=== PATIENT | female | born 1955 | race Caucasian/White ===

== ENCOUNTER 2021-01-23 07:04 | Day surgery (SDC) | payer MEDICARE, SELFPAY ==
[2021-01-17 15:27] VITALS: BMI 35.5
--- NOTE | 2021-01-20 15:07 | MHC.SHP ---
Pre-Procedural Eval Section A The patient is an INPATIENT: No The History & Physical has been completed within 30 days and I have reviewed it.: Yes Section B Chief Complaint: cataract left eye Allergies: Allergies Allergy/AdvReac Type Severity Reaction Status Date / Time No Known Allergies Allergy Verified 01/17/21 15:33 [No Known Allergies*] Plan Diagnosis/Plan: Unchanged I have reviewed the history and physical and performed a pertinent physical examination on my patient. No changes have occurred unless specified.
[2021-01-23 07:16] VITALS: BP 139/88; PULSE 90; RESP 18; TEMP 36.1; O2SAT 94
[2021-01-23] MEDS: Tetracaine HCl/PF 0.5% Oph Sol 4 ML DROPS 1 DROP EYE-LEFT (07:25)
[2021-01-23] MEDS: Tropicamide 1 % Ophth Sol 3 ML BTL 1 DROP EYE-LEFT ×3 (07:26→07:33)
[2021-01-23] MEDS: Phenylephrine HCL 2.5% Oph SoL 2 ML BOTTLE 1 DROP EYE-LEFT ×3 (07:27→07:33)
--- NOTE | 2021-01-23 08:19 | HO.ANESPROP2 ---
[facility] Past Medical History Medical History Back pain Depression Elevated cholesterol GERD (gastroesophageal reflux disease) Hiatal hernia History of cerebral aneurysm HTN (hypertension) Hx of spinal stenosis Lab test negative for COVID-19 virus Surgical History Surgical History H/O colonoscopy History of esophagogastroduodenoscopy (EGD) Hx of hammer toe correction Social History Social History Are you a primary patient centered care specialist to a significant other at home: No Do you presently have visiting nurse or other home services: No Alcohol intake: current Alcohol intake frequency: a few times a month Smoking Status: Never smoker Use of substances other than those prescribed or required for medical reasons: No Have you been hit, kicked, punched, or otherwise hurt by someone within the past year? If so, by whom?: No Advance Directives Information Provided: No Recently lost weight without trying: No Meds Allergies Allergy/AdvReac Type Severity Reaction Status Date / Time No Known Allergies Allergy Verified 01/17/21 15:33 [No Known Allergies*] Active Medications: Current Medications Generic Name Dose Route Start Last Admin Trade Name Freq PRN Reason Stop Dose Admin Povidone Iodine 1 appl 01/23/21 07:05 Povidone Iodine 5 % Ophth Soln 30 Ml Bottle EYE-LEFT PREOP PRN Pre-Op Surgical Implant Prophy Home Medications Medication Instructions Recorded Confirmed Last Taken Type albuterol sulfate 2 puff PO Q4H PRN 01/17/21 01/17/21 Unknown History atorvastatin 1 tab PO DAILY 01/17/21 01/17/21 Unknown History bupropion HCl 150 mg PO DAILY 01/17/21 01/17/21 Unknown History celecoxib 1 cap PO DAILY 01/17/21 01/17/21 Unknown History hydrochlorothiazide 1 tab PO DAILY 01/17/21 01/17/21 Unknown History lorazepam 1 tab PO BID PRN 01/17/21 01/17/21 Unknown History omeprazole 1 cap PO DAILY 01/17/21 01/17/21 Unknown History sertraline 1 tab PO DAILY 01/17/21 01/17/21 Unknown History tramadol 1 tab PO Q8H PRN 01/17/21 01/17/21 Unknown History valsartan 1 tab PO DAILY 01/17/21 01/17/21 Unknown History Exam Exam Date and Time: January 23, 2021 0819 Height,Weight and Vital Signs: Height 5 ft 4 in Weight 93.894 kg Last Vital Signs Temp 97.0 F 01/23/21 07:16 Pulse 90 01/23/21 07:16 Resp 18 01/23/21 07:16 BP 139/88 01/23/21 07:16 Pulse Ox 94 01/23/21 07:16 Airway Mallampati Class: II TM Dist: >3cm Neck ROM: Full Heart: RRR Lungs: CTA Assessment and Plan Assessment Anesthesia Assessment: Anesthesia Plan Discussed and Chart Reviewed Final Anesthetic Review NPO: Yes ASA Class: II Final Preanesthetic Review: Meds/Allgs Chart Reviewed, Consent Obtained/Reviewed and Anes Risks/Benef Reviewed Patient Risk: Low Procedure Risk: Low Anesthetic Plan Anesthetic Plan: MAC: Disposition: Standard PACU
[2021-01-23] MEDS: Lactated Ringers 500 ML 50 ML IV (09:00)
[2021-01-23 10:25] VITALS: BP 155/87; PULSE 82; RESP 20; TEMP 36.3; O2SAT 98
--- NOTE | 2021-01-23 10:25 | HO.PNOPHT ---
Ophthalmology Procedure Procedure Date of Service: 01/23/21 Ophthalmology Viscoelastic: Healon Duet Dual Pack Pro Ophthalmology Lenses: TECNIS [id number] (20.5) Procedure Notes: PREOPERATIVE DIAGNOSIS: Decreased visual acuity left eye secondary to cataract POSTOPERATIVE DIAGNOSIS: Same PROCEDURE: Left cataract extraction with multifocal intraocular lens insertion SURGEON: Baljeet Copeland M.D. ANESTHESIA: Topical/MAC ESTIMATED BLOOD LOSS: None COMPLICATIONS: Capsular rent After obtaining informed consent, the patient was brought to the operation room suite and placed in the supine position. After adequate sedation per anesthesia, topical drops of Tetracaine were given to the left eye. The eye was then prepped and draped in the usual sterile fashion. The operating room microscope was then positioned over the operative eye and a lid speculum placed. A paracentesis was created. Viscoelastic was then instilled into the anterior chamber. A three plane incision was then created temporally, utilizing a 2.85 mm keratome. Capsulotomy forceps were then utilized to create a circular tear capsulotomy. Hydrodissection and hydrodelineation were carried out until adequate mobilization of the nucleus occurred. Phacoemulsification was then utilized to remove the dense central nucleus followed by removal of the cortical material utilizing the automated aspiration irrigation unit. A rent in the capsule was noted and I switched to an anterrior vitrectomy. The rent was small. Viscoelastic was instilled into the posterior capsular bag followed by placement of a multifocal posterior chamber intraocular lens without difficulty being careful to position the haptics away from the rent.. The residual Viscoelastic was then removed utilizing the vitrector machine. The wound was check and found to be watertight. The patient tolerated the procedure well and the lid speculum was removed. Intracameral injection of Vigamox 0.1 mL followed by a subtenon injection of Kenalog-40 0.2 mL were administered. The patient will be seen in the a.m.
== END 2021-01-23 10:36 | disposition home or self-care (01) ==
PROVIDERS: PCP Internal Medicine; Visit Provider Ophthalmology
PROC: (CPT 66982; principal; 2021-01-23 09:50)
DX: H25.12 Age-related nuclear cataract, left eye (principal); H59.212 Accidental puncture and laceration of left eye and adnexa during an ophthalmic procedure; H52.4 Presbyopia; Y83.1 Surgical operation with implant of artificial internal device as the cause of abnormal reaction of the patient, or of later complication, without mention of misadventure at the time of the procedure; Y92.234 Operating room of hospital as the place of occurrence of the external cause; Y77.2 Prosthetic and other implants, materials and accessory ophthalmic devices associated with adverse incidents; I10 Essential (primary) hypertension; J45.909 Unspecified asthma, uncomplicated; Z79.899 Other long term (current) drug therapy
CPT/HCPCS: 66982; 67005; J2250; J3010; J3300; V2788

== ENCOUNTER 2021-02-06 06:41 | Day surgery (SDC) | payer MEDICARE, SELFPAY ==
[2021-01-17 15:36] VITALS: BMI 35.5
--- NOTE | 2021-02-03 08:55 | MHC.SHP ---
Pre-Procedural Eval Section A The patient is an INPATIENT: No The History & Physical has been completed within 30 days and I have reviewed it.: Yes Section B Chief Complaint: cataract right eye Allergies: Allergies Allergy/AdvReac Type Severity Reaction Status Date / Time No Known Allergies Allergy Verified 01/17/21 15:33 [No Known Allergies*] Plan Diagnosis/Plan: Unchanged I have reviewed the history and physical and performed a pertinent physical examination on my patient. No changes have occurred unless specified.
[2021-02-06 06:54] VITALS: BP 135/87; PULSE 91; RESP 20; TEMP 36.7; O2SAT 93
[2021-02-06] MEDS: Tetracaine HCl/PF 0.5% Oph Sol 4 ML DROPS 1 DROP EYE-RIGHT (07:07)
[2021-02-06] MEDS: Tropicamide 1 % Ophth Sol 3 ML BTL 1 DROP EYE-RIGHT ×3 (07:08→07:17)
[2021-02-06] MEDS: Phenylephrine HCL 2.5% Oph SoL 2 ML BOTTLE 1 DROP EYE-RIGHT ×3 (07:11→07:19)
--- NOTE | 2021-02-06 07:17 | HO.ANESPROP2 ---
[facility] Past Medical History Medical History Back pain Depression Elevated cholesterol GERD (gastroesophageal reflux disease) Hiatal hernia History of cerebral aneurysm HTN (hypertension) Hx of spinal stenosis Lab test negative for COVID-19 virus Surgical History Surgical History H/O colonoscopy History of esophagogastroduodenoscopy (EGD) Hx of hammer toe correction Social History Social History Do you presently have visiting nurse or other home services: No Alcohol intake: current Alcohol intake frequency: a few times a month Smoking Status: Never smoker Use of substances other than those prescribed or required for medical reasons: No Have you been hit, kicked, punched, or otherwise hurt by someone within the past year? If so, by whom?: No Advance Directives Information Provided: No Recently lost weight without trying: No Meds Allergies Allergy/AdvReac Type Severity Reaction Status Date / Time No Known Allergies Allergy Verified 02/06/21 06:51 [No Known Allergies*] Active Medications: Current Medications Generic Name Dose Route Start Last Admin Trade Name Freq PRN Reason Stop Dose Admin Cyclopentolate HCl 1 drop 02/06/21 07:15 Cyclopentolate 1 % Ophth Lucrecia 2 Ml Drpbtl EYE-RIGHT 02/06/21 07:26 Q5M KADEN Sodium Chloride 500 mls @ 50 mls/hr 02/06/21 18:00 Ns IV 02/07/21 03:59 .Q10H KADEN Lactated Ringer's 500 mls @ 50 mls/hr 02/06/21 07:15 Lr IV .Q10H KADEN Ketorolac Tromethamine 1 drop 02/06/21 07:15 02/06/21 07:14 Ketorolac Tromethamine 0.5% Op 3 Ml Drops EYE-RIGHT 02/06/21 07:26 1 drop Q5M KADEN Administration Phenylephrine HCl 1 drop 02/06/21 07:15 02/06/21 07:11 Phenylephrine Hcl 2.5% Oph Lucrecia 2 Ml Bottle EYE-RIGHT 02/06/21 07:26 1 drop Q5M KADEN Administration Povidone Iodine 1 appl 02/06/21 07:02 Povidone Iodine 5 % Ophth Soln 30 Ml Bottle EYE-RIGHT PREOP PRN Pre-Op Surgical Implant Prophy Tropicamide 1 drop 02/06/21 07:15 02/06/21 07:13 Tropicamide 1 % Ophth Lucrecia 3 Ml Btl EYE-RIGHT 02/06/21 07:26 1 drop Q5M KADEN Administration Home Medications Medication Instructions Recorded Confirmed Last Taken Type albuterol sulfate 2 puff PO Q4H PRN 01/17/21 01/17/21 Unknown History atorvastatin 1 tab PO DAILY 01/17/21 01/17/21 Unknown History bupropion HCl 150 mg PO DAILY 01/17/21 01/17/21 Unknown History celecoxib 1 cap PO DAILY 01/17/21 01/17/21 Unknown History hydrochlorothiazide 1 tab PO DAILY 01/17/21 01/17/21 Unknown History lorazepam 1 tab PO BID PRN 01/17/21 01/17/21 Unknown History omeprazole 1 cap PO DAILY 01/17/21 01/17/21 02/06/21 05:00 History sertraline 1 tab PO DAILY 01/17/21 01/17/21 02/06/21 05:00 History tramadol 1 tab PO Q8H PRN 01/17/21 01/17/21 Unknown History valsartan 1 tab PO DAILY 01/17/21 01/17/21 Unknown History Exam Exam Date and Time: February 06, [id number] Height,Weight and Vital Signs: Height 5 ft 4 in Weight 93.894 kg Last Vital Signs Temp 98.0 F 02/06/21 06:54 Pulse 91 02/06/21 06:54 Resp 20 02/06/21 06:54 BP 135/87 02/06/21 06:54 Pulse Ox 93 02/06/21 06:54 Airway Mallampati Class: II TM Dist: >3cm Neck ROM: Full Denture: Upper Loose/Missing/Broken Teeth: No Heart: rrr+[id number] Lungs: cta b/l Assessment and Plan Assessment Anesthesia Assessment: Anesthesia Plan Discussed and Chart Reviewed Final Anesthetic Review NPO: Yes ASA Class: III Final Preanesthetic Review: No Changes in Pt Med Stat, Meds/Allgs Chart Reviewed, Consent Obtained/Reviewed and Anes Risks/Benef Reviewed Patient Risk: Low Procedure Risk: Low Assessment/Block/Sedation in SS: Assess/Block/Sedation-SS Anesthetic Plan Anesthetic Plan: MAC: and Agree w/ Assess. and Plan Disposition: Standard PACU
--- NOTE | 2021-02-06 07:18 | HO.ANESPROP2 ---
[facility] Past Medical History Medical History Back pain Depression Elevated cholesterol GERD (gastroesophageal reflux disease) Hiatal hernia History of cerebral aneurysm HTN (hypertension) Hx of spinal stenosis Lab test negative for COVID-19 virus Surgical History Surgical History H/O colonoscopy History of esophagogastroduodenoscopy (EGD) Hx of hammer toe correction Social History Social History Do you presently have visiting nurse or other home services: No Alcohol intake: current Alcohol intake frequency: a few times a month Smoking Status: Never smoker Use of substances other than those prescribed or required for medical reasons: No Have you been hit, kicked, punched, or otherwise hurt by someone within the past year? If so, by whom?: No Advance Directives Information Provided: No Recently lost weight without trying: No Meds Allergies Allergy/AdvReac Type Severity Reaction Status Date / Time No Known Allergies Allergy Verified 02/06/21 06:51 [No Known Allergies*] Active Medications: Current Medications Generic Name Dose Route Start Last Admin Trade Name Freq PRN Reason Stop Dose Admin Cyclopentolate HCl 1 drop 02/06/21 07:15 Cyclopentolate 1 % Ophth Lucrecia 2 Ml Drpbtl EYE-RIGHT 02/06/21 07:26 Q5M KADEN Sodium Chloride 500 mls @ 50 mls/hr 02/06/21 18:00 Ns IV 02/07/21 03:59 .Q10H KADEN Lactated Ringer's 500 mls @ 50 mls/hr 02/06/21 07:15 Lr IV .Q10H KADEN Ketorolac Tromethamine 1 drop 02/06/21 07:15 02/06/21 07:14 Ketorolac Tromethamine 0.5% Op 3 Ml Drops EYE-RIGHT 02/06/21 07:26 1 drop Q5M KADEN Administration Phenylephrine HCl 1 drop 02/06/21 07:15 02/06/21 07:16 Phenylephrine Hcl 2.5% Oph Lucrecia 2 Ml Bottle EYE-RIGHT 02/06/21 07:26 1 drop Q5M KADEN Administration Povidone Iodine 1 appl 02/06/21 07:02 Povidone Iodine 5 % Ophth Soln 30 Ml Bottle EYE-RIGHT PREOP PRN Pre-Op Surgical Implant Prophy Tropicamide 1 drop 02/06/21 07:15 02/06/21 07:17 Tropicamide 1 % Ophth Lucrecia 3 Ml Btl EYE-RIGHT 02/06/21 07:26 1 drop Q5M KADEN Administration Home Medications Medication Instructions Recorded Confirmed Last Taken Type albuterol sulfate 2 puff PO Q4H PRN 01/17/21 01/17/21 Unknown History atorvastatin 1 tab PO DAILY 01/17/21 01/17/21 Unknown History bupropion HCl 150 mg PO DAILY 01/17/21 01/17/21 Unknown History celecoxib 1 cap PO DAILY 01/17/21 01/17/21 Unknown History hydrochlorothiazide 1 tab PO DAILY 01/17/21 01/17/21 Unknown History lorazepam 1 tab PO BID PRN 01/17/21 01/17/21 Unknown History omeprazole 1 cap PO DAILY 01/17/21 01/17/21 02/06/21 05:00 History sertraline 1 tab PO DAILY 01/17/21 01/17/21 02/06/21 05:00 History tramadol 1 tab PO Q8H PRN 01/17/21 01/17/21 Unknown History valsartan 1 tab PO DAILY 01/17/21 01/17/21 Unknown History Exam Exam Date and Time: February 06, 202118 Height,Weight and Vital Signs: Height 5 ft 4 in Weight 93.894 kg Last Vital Signs Temp 98.0 F 02/06/21 06:54 Pulse 91 02/06/21 06:54 Resp 20 02/06/21 06:54 BP 135/87 02/06/21 06:54 Pulse Ox 93 02/06/21 06:54 Airway Mallampati Class: II TM Dist: >3cm Neck ROM: Full Partial: Upper Loose/Missing/Broken Teeth: No Heart: rrr +s1s2 Lungs: cta b/l Assessment and Plan Assessment Anesthesia Assessment: Anesthesia Plan Discussed Final Anesthetic Review NPO: Yes ASA Class: III Final Preanesthetic Review: No Changes in Pt Med Stat, Meds/Allgs Chart Reviewed, Consent Obtained/Reviewed and Anes Risks/Benef Reviewed Patient Risk: Low Procedure Risk: Low Assessment/Block/Sedation in SS: Assess/Block/Sedation-SS Anesthetic Plan Anesthetic Plan: MAC: and Agree w/ Assess. and Plan Disposition: Standard PACU
[2021-02-06] MEDS: Lactated Ringers 500 ML 50 ML IV (07:26)
--- NOTE | 2021-02-06 07:36 | HO.ANESPROP2 ---
HPI - Anesthesia Eval Consult details Narrative: 65 year old female patient here for Right cataract extraction, IOL insertion PMFSH Past Medical History Medical History Back pain Depression Elevated cholesterol GERD (gastroesophageal reflux disease) Hiatal hernia History of cerebral aneurysm HTN (hypertension) Hx of spinal stenosis Lab test negative for COVID-19 virus Surgical History Surgical History H/O colonoscopy History of esophagogastroduodenoscopy (EGD) Hx of hammer toe correction Social History Social History Do you presently have visiting nurse or other home services: No Alcohol intake: current Alcohol intake frequency: a few times a month Smoking Status: Never smoker Use of substances other than those prescribed or required for medical reasons: No Have you been hit, kicked, punched, or otherwise hurt by someone within the past year? If so, by whom?: No Advance Directives Information Provided: No Recently lost weight without trying: No Meds Allergies Allergy/AdvReac Type Severity Reaction Status Date / Time No Known Allergies Allergy Verified 02/06/21 06:51 [No Known Allergies*] Active Medications: Current Medications Generic Name Dose Route Start Last Admin Trade Name Freq PRN Reason Stop Dose Admin Acetaminophen 650 mg 02/06/21 07:18 Acetaminophen 325 Mg Tablet PO ONCE PRN Pain, Mild (Pain Scale 1-3) Acetaminophen 650 mg 02/06/21 07:19 Acetaminophen 325 Mg Tablet PO ONCE PRN Pain, Mild (Pain Scale 1-3) Sodium Chloride 500 mls @ 50 mls/hr 02/06/21 18:00 Ns IV 02/07/21 03:59 .Q10H KADEN Lactated Ringer's 500 mls @ 50 mls/hr 02/06/21 07:15 02/06/21 07:26 Lr IV 50 mls/hr .Q10H KADEN Administration Ondansetron HCl 4 mg 02/06/21 07:18 Ondansetron Hcl 4 Mg/2 Ml Vial IVPUSH ONCE PRN Nausea and Vomiting Ondansetron HCl 4 mg 02/06/21 07:19 Ondansetron Hcl 4 Mg/2 Ml Vial IVPUSH ONCE PRN Nausea and Vomiting Oxycodone HCl 5 mg 02/06/21 07:18 Oxycodone Hcl Immed Release 5 Mg Tablet PO ONCE PRN Pain, Severe (Pain Scale 7-10) Oxycodone HCl 5 mg 02/06/21 07:19 Oxycodone Hcl Immed Release 5 Mg Tablet PO ONCE PRN Pain, Severe (Pain Scale 7-10) Povidone Iodine 1 appl 02/06/21 07:02 Povidone Iodine 5 % Ophth Soln 30 Ml Bottle EYE-RIGHT PREOP PRN Pre-Op Surgical Implant Prophy Home Medications Medication Instructions Recorded Confirmed Last Taken Type albuterol sulfate 2 puff PO Q4H PRN 01/17/21 01/17/21 Unknown History atorvastatin 1 tab PO DAILY 01/17/21 01/17/21 Unknown History bupropion HCl 150 mg PO DAILY 01/17/21 01/17/21 Unknown History celecoxib 1 cap PO DAILY 01/17/21 01/17/21 Unknown History hydrochlorothiazide 1 tab PO DAILY 01/17/21 01/17/21 Unknown History lorazepam 1 tab PO BID PRN 01/17/21 01/17/21 Unknown History omeprazole 1 cap PO DAILY 01/17/21 01/17/21 02/06/21 05:00 History sertraline 1 tab PO DAILY 01/17/21 01/17/21 02/06/21 05:00 History tramadol 1 tab PO Q8H PRN 01/17/21 01/17/21 Unknown History valsartan 1 tab PO DAILY 01/17/21 01/17/21 Unknown History Exam Exam Date and Time: February 06, 2021 0736 Height,Weight and Vital Signs: Height 5 ft 4 in Weight 93.894 kg Last Vital Signs Temp 98.0 F 02/06/21 06:54 Pulse 91 02/06/21 06:54 Resp 20 02/06/21 06:54 BP 135/87 02/06/21 06:54 Pulse Ox 93 02/06/21 06:54
[2021-02-06 08:20] VITALS: BP 140/92; PULSE 94; RESP 20; TEMP 36.9; O2SAT 95
--- NOTE | 2021-02-06 08:23 | P.PCNO_ITS ---
Ophthalmology Procedure Procedure Date of Service: 02/06/21 Ophthalmology Viscoelastic: Healon Duet Dual Pack Pro Ophthalmology Lenses: TECNIS [id number] (20.5) Procedure Notes: PREOPERATIVE DIAGNOSIS: Decreased visual acuity right eye secondary to cataract POSTOPERATIVE DIAGNOSIS: Same PROCEDURE: Right cataract extraction with multifocal intraocular lens insertion SURGEON: Bajleet Copeland M.D. ANESTHESIA: Topical/MAC ESTIMATED BLOOD LOSS: None COMPLICATIONS: None After obtaining informed consent, the patient was brought to the operating room suite and placed in the supine position. After adequate sedation per anesthesia, topical drops of Tetracaine were given to the right eye. The eye was then prepped and draped in the usual sterile fashion. The operating room microscope was then positioned over the operative eye and a lid speculum placed. A paracentesis was created. Viscoelastic was then instilled into the anterior chamber. A three plane incision was then created temporally, utilizing a 2.85 mm keratome. Capsulotomy forceps were then utilized to create a circular tear capsulotomy. Hydrodissection and hydrodelineation were carried out until adequate mobilization of the nucleus occurred. Phacoemulsification was then utilized to remove the dense central nuc leus followed by removal of the cortical material utilizing the automated aspiration irrigation unit. Viscoelastic was instilled into the posterior capsular bag followed by placement of a multifocal posterior chamber intraocular lens without difficulty. The residual Viscoelastic was then removed utilizing the automated IA machine. The wound was checked and found to be watertight. The patient tolerated the procedure well and the lid speculum was removed. Intracameral injection of Vigamox 0.1 mL followed by a subtenon injection of Kenalog-40 0.2 mL were administered. The patient will be seen in the a.m.
[2021-02-06] MEDS: Acetaminophen 325 MG TABLET 650 MG PO (08:28)
== END 2021-02-06 09:05 | disposition home or self-care (01) ==
PROVIDERS: PCP Internal Medicine; Visit Provider Ophthalmology
PROC: (CPT 66984; principal; 2021-02-06 07:50)
DX: H25.11 Age-related nuclear cataract, right eye (principal); H54.7 Unspecified visual loss; I10 Essential (primary) hypertension; Z79.899 Other long term (current) drug therapy
CPT/HCPCS: 66984; J2250; J3010; J3300; V2788

== ENCOUNTER 2021-04-21 11:10 | Outpatient (REF) | payer MEDICARE, SELFPAY ==
--- NOTE | ~2021-04-21 | MM_ITS ---
EXAMINATION: MM SCREENING DIGITAL BREAST TOMOSYNTHESIS, BILATERAL CLINICAL INFORMATION: Screening. Asymptomatic. The lifetime risk of breast cancer based on the Tyrer-Cuzick Model is 12.9%. COMPARISON: Mammography: October 26, 2019 and studies dating back to December 31, 2011 TECHNIQUE: Digital breast tomosynthesis is performed in both the craniocaudal and mediolateral oblique views along with computer-aided detection (CAD). Synthesized 2D images are generated from the tomosynthesis. Right breast exaggerated craniocaudal view also performed. FINDINGS: There are scattered areas of fibroglandular density (ACR BI-RADS breast composition Category b). There are no significant masses, abnormal calcifications, or other abnormalities. MM/MM tomosynthesis screening BI IMPRESSION: There are no significant changes from prior study. ASSESSMENT: BI-RADS 1: Negative RECOMMENDATION: Routine annual mammography screening. This patient's information was entered into a reminder system with a target due date for their next mammogram.
== END 2021-04-21 11:11 | disposition home or self-care (01) ==
LOC: HO.MAMMO 11:10
PROVIDERS: PCP Internal Medicine; Visit Provider Internal Medicine
DX: Z12.31 Encounter for screening mammogram for malignant neoplasm of breast (principal)
CPT/HCPCS: 77063; 77067

== ENCOUNTER 2022-04-25 11:16 | Outpatient (REF) | payer MEDICARE, SELFPAY ==
--- NOTE | ~2022-04-25 | MM_ITS ---
EXAMINATION: MM SCREENING DIGITAL BREAST TOMOSYNTHESIS, BILATERAL CLINICAL INFORMATION: Screening. Asymptomatic. The lifetime risk of breast cancer based on the Tyrer-Cuzick Model is 11%. COMPARISON: Mammography: 04/21/2021, 10/26/2019, 09/08/2018 TECHNIQUE: Digital breast tomosynthesis is performed in both the craniocaudal and mediolateral oblique views along with computer-aided detection (CAD). Synthesized 2D images are generated from the tomosynthesis. Additional left CC view is provided. FINDINGS: There are scattered areas of fibroglandular density (ACR BI-RADS breast composition Category b). There are no significant masses, abnormal calcifications, or other abnormalities. Parenchymal pattern is similar to prior studies. There is no developing density or architectural abnormality. The axilla and skin contours are unremarkable. No significant changes. MM/MM tomosynthesis screening BI IMPRESSION: No significant changes from prior exams. ASSESSMENT: BI-RADS 1: Negative RECOMMENDATION: Routine annual mammography screening. This patient's information was entered into a reminder system with a target due date for their next mammogram.
== END 2022-04-25 11:17 | disposition home or self-care (01) ==
LOC: HO.MAMMO 11:16
PROVIDERS: Visit Provider Internal Medicine
DX: Z12.31 Encounter for screening mammogram for malignant neoplasm of breast (principal)
CPT/HCPCS: 77063; 77067

== ENCOUNTER 2023-05-08 12:19 | Outpatient (REF) | payer MEDICARE, SELFPAY ==
--- NOTE | ~2023-05-08 | MM_ITS ---
EXAMINATION: MM SCREENING DIGITAL BREAST TOMOSYNTHESIS, BILATERAL CLINICAL INFORMATION: Screening. Asymptomatic. The lifetime risk of breast cancer based on the Tyrer-Cuzick Model is 13%. COMPARISON: Mammography: 04/25/2022, 04/21/2021, 10/26/2019 TECHNIQUE: Digital breast tomosynthesis is performed in both the craniocaudal and mediolateral oblique views along with computer-aided detection (CAD). Synthesized 2D images are generated from the tomosynthesis. FINDINGS: There are scattered areas of fibroglandular density (ACR BI-RADS breast composition Category b). There are no significant masses, abnormal calcifications, or other abnormalities. Parenchymal pattern is similar to prior studies. There is no developing density or architectural abnormality. The axilla and skin contours are unremarkable. No significant changes. MM/MM tomosynthesis screening BI IMPRESSION: No mammographic evidence of malignancy. ASSESSMENT: BI-RADS 1: Negative RECOMMENDATION: Routine annual mammography screening. This patient's information was entered into a reminder system with a target due date for their next mammogram.
== END 2023-05-08 12:20 | disposition home or self-care (01) ==
LOC: HO.MAMMO 12:19
PROVIDERS: PCP Internal Medicine; Visit Provider Internal Medicine
DX: Z12.31 Encounter for screening mammogram for malignant neoplasm of breast (principal)
CPT/HCPCS: 77063; 77067

== ENCOUNTER 2024-03-27 13:05 | Outpatient (AMB) | payer MEDICARE, SELFPAY ==
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
== END 2024-03-27 13:56 | disposition home or self-care (01) ==
LOC: HO.HOP 13:05
PROVIDERS: PCP Internal Medicine; Visit Provider Clinical Nurse Specialist Psychiatric/Mental Health
DX: F43.10 Post-traumatic stress disorder, unspecified (principal); F33.9 Major depressive disorder, recurrent, unspecified
CPT/HCPCS: 99214

== ENCOUNTER → 2024-03-27 13:05 | Outpatient (BNVA) | payer MEDICARE, SELFPAY | PROVIDERS: PCP Internal Medicine; Visit Provider Clinical Nurse Specialist Psychiatric/Mental Health | DX: F43.10 Post-traumatic stress disorder, unspecified (principal); F33.9 Major depressive disorder, recurrent, unspecified; Z79.899 Other long term (current) drug therapy | CPT/HCPCS: 99212 ==

== ENCOUNTER 2024-05-19 10:46 | Outpatient (REF) | payer MEDICARE, SELFPAY | END 2024-05-19 10:47 | disposition home or self-care (01) | LOC: HO.MAMMO 10:46 | PROVIDERS: PCP Internal Medicine; Visit Provider Internal Medicine | DX: Z12.31 Encounter for screening mammogram for malignant neoplasm of breast (principal) | CPT/HCPCS: 77063; 77067 ==

== ENCOUNTER → 2024-05-19 11:00 | Outpatient (BNV) | payer MEDICARE, SELFPAY | PROVIDERS: PCP Internal Medicine; Visit Provider Radiology Diagnostic Radiology | DX: Z12.31 Encounter for screening mammogram for malignant neoplasm of breast (principal) | CPT/HCPCS: 77063; 77067 ==

== ENCOUNTER 2024-08-24 11:37 | Outpatient (AMB) | payer MEDICARE, SELFPAY ==
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
== END 2024-08-24 12:09 | disposition home or self-care (01) ==
LOC: HO.HOP 11:37
PROVIDERS: PCP Internal Medicine; Visit Provider Clinical Nurse Specialist Psychiatric/Mental Health
DX: F43.21 Adjustment disorder with depressed mood (principal); F43.10 Post-traumatic stress disorder, unspecified; F33.9 Major depressive disorder, recurrent, unspecified
CPT/HCPCS: 90833; 99214

== ENCOUNTER → 2024-08-24 11:37 | Outpatient (BNVA) | payer MEDICARE, SELFPAY | PROVIDERS: PCP Internal Medicine; Visit Provider Clinical Nurse Specialist Psychiatric/Mental Health | DX: F43.21 Adjustment disorder with depressed mood (principal); F43.10 Post-traumatic stress disorder, unspecified; F33.9 Major depressive disorder, recurrent, unspecified | CPT/HCPCS: 99212 ==

== ENCOUNTER 2024-10-19 11:14 | Outpatient (AMB) | payer MEDICARE, SELFPAY ==
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
== END 2024-10-19 11:54 | disposition home or self-care (01) ==
LOC: HO.HOP 11:14
PROVIDERS: PCP Internal Medicine; Visit Provider Clinical Nurse Specialist Psychiatric/Mental Health
DX: F33.9 Major depressive disorder, recurrent, unspecified (principal); F43.10 Post-traumatic stress disorder, unspecified
CPT/HCPCS: 99214

== ENCOUNTER → 2024-10-19 11:14 | Outpatient (BNVA) | payer MEDICARE, SELFPAY | PROVIDERS: PCP Internal Medicine; Visit Provider Clinical Nurse Specialist Psychiatric/Mental Health | DX: F33.9 Major depressive disorder, recurrent, unspecified (principal); F43.10 Post-traumatic stress disorder, unspecified; Z71.89 Other specified counseling | CPT/HCPCS: 99212 ==

== ENCOUNTER 2025-01-26 12:59 | Outpatient (AMB) | payer MEDICARE, SELFPAY ==
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
--- OUTSIDE RECORDS SUMMARY | 2025-01-26 15:52 | XMS_ITS | Encounter Summary ---
Author Organization [facility] Address [address] [place] [address] Care Team Providers Care Bulk Filler Name Role Phone Salvador Mixon DO Primary Care Provider [phone] Encounter Details Date Type Department Care Team (Late st Contact Info) Description 02/04/2019 Scanned Document [facility] [address] [facility] [address] [place] [id number] Provider, Nati, [address] [place] [address] Social History Tobacco Use Types Packs/Day Years Used Date Smoking Tobacco: Never Assessed Sex and Gender Information Value Date Recorded Sex Assigned at Not on file Gender Identity Not on file Sexual Orientation Not on file documented as of this encounter Plan of Treatment Not on file documented as of this encounter Visit Diagnoses Not on filedocumented in this encounter Care Teams Bulk Filler Relationship Specialty Start Date End Date Salvador Mixon DO [address] [facility] [address] [facility] [address] [place] [address] PCP - General 01/05/19 documented as of this encounter
--- OUTSIDE RECORDS SUMMARY | 2025-01-26 15:52 | XMS_ITS | Clinical Summary ---
Author Organization [facility] Address [address] [place] [address] Care Team Providers Care Director Investment Banking Name Role Phone Salvador Mixon DO Primary Care Provider Allergies No known active allergies Medications Medication Sig Dispensed Refills Start Date End Date Status LORazepam (ATIVAN) 0.5 MG tablet Take 0.5 mg by mouth 3 times daily (every 8 hours) as needed. Active buPROPion (WELLBUTRIN SR) 150 MG 12 hr tablet Take 150 mg by mouth 2 (two) times a day. Active valsartan-hydrochlo rothiazide (DIOVAN-HCT) 160-12.5 MG per tablet Take 1 tablet by mouth daily. Active albuterol (PROVENTIL) (0.083%) 2.5 mg/3 mL nebulizer solution Take 1 vial by nebulization 4 times daily (every 6 hours) as needed for wheezing. Active fluticasone (FloNASE) 50 mcg/spray nasal spray 1 spray into each nostril daily. Active OMEprazole (PriLOSEC) 20 MG capsule Take 20 mg by mouth every morning before breakfast. Active cetirizine (ZyrTEC) 10 MG tablet Take 10 mg by mouth daily. Active EPINEPHrine 0.15 mg/0.3 mL IJ auto-injection Inject 0.15 mg into the shoulder, thigh, or buttocks once as needed for allergic reaction. Active amoxicillin-clavula mariya (AUGMENTIN) 875-125 MG per tablet Take 1 tablet by mouth 2 (two) times a day. for 10 days 0 04/07/2019 Active atorvastatin (LIPITOR) 40 MG tablet 0 02/04/2019 Active QVAR REDIHALER 40 MCG/ACT inhaler 0 03/09/2019 Active DILT-XR 120 MG 24 hr capsule Take 120 mg by mouth daily. 0 02/10/2019 Active LORazepam (ATIVAN) 1 MG tablet 0 03/23/2019 Active oxyCODONE-acetamino phen (PERCOCET) 5-325 mg per tablet 0 03/20/2019 Activ e sertraline (ZOLOFT) 100 MG tablet 0 01/22/2019 Active Social History Tobacco Use Types Packs/Day Years Used Date Smoking Tobacco: Former Smokeless Tobacco: Never Tobacco Cessation:Counseling Given: No Alcohol Use Standard Drinks/Week Comments Not Currently 0 (1 standard drink = 0.6 oz pur e alcohol) Sex and Gender Information Value Date Recorded Sex Assigned at Not on file Gender Identity Not on file Sexual Orientation Not on file Last Filed Vital Signs Vital Sign Reading Time Taken Comments Blood Pressure - - Pulse - - Temperature - - Respiratory Rate - - Oxygen Saturation - - Inhaled Oxygen Concentration - - Weight 82.6 kg (182 lb) 04/10/2019 2:35 PM EDT Height 162.6 cm (5' 4 ) 04/10/2019 2:35 PM EDT Body Mass Index 31.24 04/10/2019 2:35 PM EDT Plan of Treatment Health Maintenance Due Date Last Done Comments Hepatitis C Virus Screening 1955 DTaP/Tdap/Td Vaccines (1 - Tdap) 1974 Mammogram 1995 Colonoscopy 02/27/2000 Pneumococcal Vaccines 50+ (1 of 1 - PCV) 2005 Zoster (Shingles) Vaccine (1 of 2) 2005 DXA Bone Density (Females,Ag es 65 and older) 02/27/2020 Influenza Vaccine 07/02/2024 COVID-19 Vaccine ( - 2023-2 5 season) 2024 RSV Vaccine 60 years and old er and Patients (1 - 1-dose 75+ series) 2030 Hepatitis B Vaccines Aged Out No long er eligible based on patient's age to complete this topic Care Teams Director Investment Banking Relationship Specialty Start Date End Date Salvador Mixon DO [address] [facility] [address] [place] [address] PCP - General 01/05/19
--- OUTSIDE RECORDS SUMMARY | 2025-01-26 15:52 | XMS_ITS | Encounter Summary ---
Author Organization [facility] Address [address] [place] [address] Care Team Providers Care Hand Candy Dipper Name Role Phone Salvador Mixon DO Primary Care Provider [phone] Encounter Details Date Type Department Care Team (Late st Contact Info) Description 01/12/2019 Scanned Document [facility] Neurosurgery [facility] [address] [place] [address] [address] [place] [phone] Edwin Mcghee MD [address] [place] [address] Social History Tobacco Use Types Packs/Day Years Used Date Smoking Tobacco: Never Assessed Sex and Gender Information Value Date Recorded Sex Assigned at Not on file Gender Identity Not on file Sexual Orientation Not on file documented as of this encounter Plan of Treatment Not on file documented as of this encounter Visit Diagnoses Not on filedocumented in this encounter Care Teams Hand Candy Dipper Relationship Specialty Start Date End Date Salvador Mixon DO [address] [facility] [address] [place] [address] PCP - General 01/05/19 documented as of this encounter
--- OUTSIDE RECORDS SUMMARY | 2025-01-26 15:52 | XMS_ITS | Encounter Summary ---
Author Organization [facility] Address [address] [place] [address] Care Team Providers Care Printing Pressman Name Role Phone Salvador Mixon DO Primary Care Provider [phone] Encounter Details Date Type Department Care Team (Late st Contact Info) Description 02/06/2019 Scanned Document [facility] Neurosurgery [place] [address] [facility] [address] [place] [phone] Edwin Mcghee MD [address] [facility] [address] [place] [address] Social History Tobacco Use Types Packs/Day Years Used Date Smoking Tobacco: Never Assessed Sex and Gender Information Value Date Recorded Sex Assigned at Not on file Gender Identity Not on file Sexual Orientation Not on file documented as of this encounter Plan of Treatment Not on file documented as of this encounter Visit Diagnoses Not on filedocumented in this encounter Care Teams Printing Pressman Relationship Specialty Start Date End Date Salvador Mixon DO [address] [facility] [address] [place] [address] PCP - General 01/05/19 documented as of this encounter
== END 2025-01-26 17:01 | disposition home or self-care (01) ==
LOC: HO.HOP 12:59
PROVIDERS: PCP Internal Medicine; Visit Provider Clinical Nurse Specialist Psychiatric/Mental Health
DX: F33.9 Major depressive disorder, recurrent, unspecified (principal); F43.10 Post-traumatic stress disorder, unspecified
CPT/HCPCS: 99214

== ENCOUNTER → 2025-01-26 12:59 | Outpatient (BNVA) | payer MEDICARE, SELFPAY | PROVIDERS: PCP Internal Medicine; Visit Provider Clinical Nurse Specialist Psychiatric/Mental Health | DX: F33.9 Major depressive disorder, recurrent, unspecified (principal); F43.10 Post-traumatic stress disorder, unspecified | CPT/HCPCS: 99212 ==

== ENCOUNTER 2025-04-19 10:15 | Observation (INO) | payer MEDICARE, SELFPAY ==
[2025-04-19] VITALS (14 sets, daily range): BP systolic 126–162; BP diastolic 63–102; PULSE 79–102; RESP 14–22; TEMP 36.7–37.1; O2SAT 91–95; BMI 34.0
--- NOTE | 2025-04-19 11:04 | ED_ITS ---
HPI - General Adult General Chief complaint: Dyspnea Stated complaint: diff breathing Time Seen by Provider: 04/19/25 10:49 History of Present Illness ED Provider: Dr. Tamez HPI narrative: 70 y/o F patient; PMH HTN, idiopathic angioedema; presents from home with report of throat swelling with foreign body sensation and voice changes. The patient states she was last in the emergency department several years ago for similar complaint requiring x2 epi-pen and benadryl. She had since seen an allergy provider without finding the known cause of the angioedema. She reports nausea and irritation in her throat. Symptoms were present on waking this morning, she had a dream where her throat was closing and when she woke up she noticed the swelling in the back of her throat. She otherwise denies: vomiting, chest pain, cough/congestion. Related Data Home Medications ?Medication ?Instructions ?Recorded ?Confirmed albuterol sulfate 90 mcg/actuation 2 puff PO Q4H PRN Shortness Of 01/17/21 01/26/25 aerosol inhaler Breath atorvastatin 40 mg tablet 1 tab PO DAILY 01/17/21 01/26/25 celecoxib 200 mg capsule 1 cap PO DAILY 01/17/21 01/26/25 omeprazole 20 mg capsule,delayed 1 cap PO DAILY 01/17/21 01/26/25 release tramadol 50 mg tablet 1 tab PO Q8H PRN moderate pain 01/17/21 01/26/25 chvobbvcng-cwtmohqcretcx-npriiwvi 1 cap PO Q4H PRN 03/27/24 01/26/25 50 mg-300 mg-40 mg capsule chlorhexidine gluconate 0.12 % PO 03/27/24 01/26/25 mouthwash levocetirizine 5 mg tablet 5 mg PO DAILY 03/27/24 01/26/25 valsartan 160 1 tab PO DAILY 03/27/24 01/26/25 mg-hydrochlorothiazide 25 mg tablet Previous Rx's ?Medication ?Instructions ?Recorded bupropion HCl 100 mg tablet,12 hr 100 mg PO QAM #90 tabs 01/26/25 sustained-release (Wellbutrin SR) lorazepam 1 mg tablet 1 mg PO BID PRN anxiety 90 days 01/26/25 #180 tabs sertraline 100 mg tablet (Zoloft) 100 mg PO DAILY #90 tabs 01/26/25 Allergies Allergy/AdvReac Type Severity Reaction Status Date / Time No Known Allergies Allergy Verified 04/19/25 10:17 [No Known Allergies*] Review of Systems 2 Review of Systems: Yes all other systems are reviewed and are negative REPLACED BY [facility] Past Medical History Attestation statement: The following information was validated with the patient. Source: old records reviewed Medical History Hx of spinal stenosis Back pain Depression History of cerebral aneurysm Lab test negative for COVID-19 virus Hiatal hernia GERD (gastroesophageal reflux disease) Elevated cholesterol HTN (hypertension) Surgical History History of esophagogastroduodenoscopy (EGD) H/O colonoscopy Hx of hammer toe correction Social History Social History Are you a primary career professional to a significant other at home: No Do you presently have visiting nurse or other home services: No Alcohol intake: current Alcohol intake frequency: a few times a month Smoked in Last 30 Days: No Use of substances other than those prescribed or required for medical reasons: No Advance Directives: No Advance Directives Information Provided: Yes Physical Exam ED Vital Signs: Vital Signs - 24 hr 04/19/25 10:17 04/19/25 11:11 04/19/25 11:40 Temperature 98.1 F Pulse Rate 102 H 82 81 Respiratory Rate 22 H 15 Blood Pressure 162/102 H 162/102 H 137/88 Pulse Oximetry 95 94 Oxygen Delivery Method Room Air Room Air 04/19/25 11:53 Temperature Pulse Rate 79 Respiratory Rate 16 Blood Pressure 151/82 H Pulse Oximetry 93 Oxygen Delivery Method Room Air BMI result Body Mass Index 34.0 Patient is afebrile, tachycardic, and hypertensive. Const General: cooperative Orientation/consciousness: patient oriented x3 HENMT Other: + Uvular edema noted Patient's voice is muffled Eyes General: appearance normal, both eyes and all related structures Pupils: Equal, round and reactive pupils present EOM: EOMs intact bilaterally Neck Neck: Yes normal visual inspection, Yes full ROM, Yes supple and No tender Chest Chest palpation & inspection: normal inspection of the chest and normal palpation of entire chest wall Resp Effort & Inspection: normal respiratory effort, able to speak in complete sentences, no cough and no respiratory distress Auscultation: clear to auscultation bilaterally Cardio Rate: tachycardic Rhythm: regular rhythm Peripheral pulses: Peripheral pulses 2+ throughout GI Inspection: Yes normal to inspection, No Abdominal wall edema and No distended Palpation (GI): Soft to palpation, not firm, nontender, no guarding and not rigid Auscultation: normal bowel sounds Back/Spine/Pelvis Back: No back tenderness Neuro General: patient oriented x3 Cranial nerves: Yes Equal, round and reactive pupils present Course Course Course Narrative: Patient is afebrile, tachycardic, hypertensive. Exam and history consistent with angioedema. Will trial epi-pen, benadryl, and solu-medrol. Will also provide TXA and FFP units x2. Reevaluation(s) Reevaluation #1: Patient re-evaluated approx 30min - 1hr after medications administered. Significant improvement in uvular swelling, voice remains slightly muffled but has improved. ICU consulted with plan to admit the patient to the floor for observation. Plan: Admit to hospitalist Condition: Stable Medications Administered Discontinued Medications Generic Name Dose Route Start Last Admin Trade Name Freq PRN Reason Stop Dose Admin Diphenhydramine HCl 50 mg 04/19/25 10:56 04/19/25 11:11 Diphenhydramine Hcl 50 Mg/Ml Vial IVPUSH 04/19/25 10:57 50 mg ONCE ONE Administration Epinephrine 0.3 mg 04/19/25 10:54 04/19/25 11:11 Epinephrine 1 Mg/Ml Vial IM 04/19/25 10:55 0.3 mg STAT STA Administration Tranexamic Acid 1,000 mg/ 60 mls @ 360 mls/hr 04/19/25 10:56 04/19/25 11:53 Sodium Chloride IV 04/19/25 11:05 Infused ONCE ONE Infusion Methylprednisolone Sodium Succinate 125 mg 04/19/25 10:56 04/19/25 11:11 Methylprednisolone Sod Succ 125 Mg Vial IVPUSH 04/19/25 10:57 125 mg ONCE ONE Administration Medical Decision Making Lab Data 04/19/25 11:32 04/19/25 11:32 Labs: Lab Results 04/19/25 04/19/25 Range/Units 11:32 11:43 WBC 5.8 (4.8-10.8) X10*3/uL RBC 4.33 (4.20-5.50) X10*6/uL Hgb 13.7 (12.0-16.0) g/dl Hct 39.8 (37.0-47.0) % MCV 91.9 (80.0-98.0) fL MCH 31.6 (27.0-33.0) pg MCHC 34.4 (31.0-35.0) g/dl RDW 13.2 (11.0-16.0) % Plt Count 285 (160-400) X10*3/uL MPV 8.7 L (9.4-12.3) fL Immature Gran % (Auto) 0.3 (0.0-0.4) % Neut % (Auto) 47.9 (45-73) % Lymph % (Auto) 35.4 (20-40) % [place] % (Auto) 9.9 (2-11) % Eos % (Auto) 5.3 H (0-4) % Baso % (Auto) 1.2 (0-2) % Lymph # (Auto) 2.1 (1.2-4.9) X10*3/uL [place] # (Auto) 0.6 (0.1-1.2) X10*3/uL Eos # (Auto) 0.3 (0.0-0.4) X10*3/uL Baso # (Auto) 0.1 (0.0-0.2) X10*3/uL Abs Immat Gran (auto) 0.02 (0.00-0.03) X10*3/uL Absolute Neuts (auto) 2.8 (2.0-8.3) x10*3/uL Absolute Nucleated RBC 0.000 (0.0-0.012) X10*3/uL Nucleated RBC % (auto) 0.0 (0.0-0.2) /100WBC Sodium 139 (135-145) mmol/L Potassium 3.6 (3.3-5.1) mmol/L Chloride 107 (96-108) mmol/L Carbon Dioxide 25 (22-29) mmol/L Anion Gap 11 L (12-20) BUN 22 H (9-16) mg/dL Creatinine 0.69 (0.5-1.4) mg/dL Estim Creat Clear Calc 82.3 Estimated GFR > 60 Random Glucose 115 (60-115) mg/dL Calcium 8.6 (8.4-10.2) mg/dL Blood Type B Negative Critical Care Time Critical Care Time Critical Care Time: Yes Total Critical Care Time: 36 Attestation: Total critical care time: Approximately?36?minutes Due to a high probability of clinically significant, life threatening deterioration, the patient required my highest level of preparedness to intervene emergently and I personally spent this critical care time directly and personally managing the patient. This critical care time included obtaining a history; examining the patient; pulse oximetry; ordering and review of studies; arranging urgent treatment with development of a management plan; evaluation of patient's response to treatment; frequent reassessment; and, discussions with other providers. This critical care time was performed to assess and manage the high probability of imminent, life-threatening deterioration that could result in multi-organ failure. It was exclusive of separately billable procedures and treating other patients? Discharge Plan Discharge Clinical Impression: Angioedema Patient Disposition: Admitted As Inpatient Prescriptions: No Action celecoxib 200 mg capsule 1 cap PO DAILY atorvastatin 40 mg tablet 1 tab PO DAILY tramadol 50 mg tablet 1 tab PO Q8H PRN (Reason: moderate pain) omeprazole 20 mg capsule,delayed release(DR/EC) 1 cap PO DAILY albuterol sulfate 90 mcg/actuation HFA aerosol inhaler 2 puff PO Q4H PRN (Reason: Shortness Of Breath) bupropion HCl [Wellbutrin SR] 100 mg tablet sustained-release 12 hr 100 mg PO QAM Qty: 90 1RF sertraline [Zoloft] 100 mg tablet 100 mg PO DAILY Qty: 90 1RF lorazepam 1 mg tablet 1 mg PO BID PRN (Reason: anxiety) 90 Days Qty: 180 1RF valsartan-hydrochlorothiazide 160-25 mg tablet 1 tab PO DAILY chlorhexidine gluconate 0.12 % mouthwash PO levocetirizine 5 mg tablet 5 mg PO DAILY ytubbeacom-gqjdmwmbpkksn-fbdy 50-300-40 mg capsule 1 cap PO Q4H PRN Print Language: German
[2025-04-19] MEDS: EPINEPHrine 1 MG/ML VIAL 0.3 MG IM (11:11)
[2025-04-19] MEDS: diphenhydrAMINE HCL 50 MG/ML VIAL IVPUSH ×2 (11:11→23:47)
--- OUTSIDE RECORDS SUMMARY | 2025-04-19 11:13 | XMS_ITS | Encounter Summary ---
Author Organization [facility] Address [address] [place] [address] Care Team Providers Care Cell Cleaner Name Role Phone Salvador Mixon DO Primary Care Provider [phone] Encounter Details Date Type Department Care Team (Late st Contact Info) Description 01/12/2019 Scanned Document [facility] Neurosurgery [facility] [address] [facility] [address] [place] [phone] Edwin Mcghee MD [address] [place] [address] Social History Tobacco Use Types Packs/Day Years Used Date Smoking Tobacco: Never Assessed Comments Unknown Sex and Gender Information Value Date Recorded Sex Assigned at Not on file Legal Sex Female 6:47 PM EST Gender Identity Not on file Sexual Orientation Not on file documented as of this encounter Plan of Treatment Not on file documented as of this encounter Visit Diagnoses Not on filedocumented in this encounter Care Teams Cell Cleaner Relationship Specialty Start Date End Date Savlador Mixon DO [address] [facility] [address] [place] [address] PCP - General 01/05/19 documented as of this encounter
--- OUTSIDE RECORDS SUMMARY | 2025-04-19 11:13 | XMS_ITS | Encounter Summary ---
Author Organization [facility] Address [address] [place] [address] Care Team Providers Care Shells Inspector Name Role Phone Salvador Mixon DO Primary Care Provider [phone] Encounter Details Date Type Department Care Team (Late st Contact Info) Description 02/04/2019 Scanned Document [facility] [address] [facility] [address] [place] [phone] Provider, Nati, [address] [place] [address] Social History Tobacco Use Types Packs/Day Years [...] on filedocumented in this encounter Care Teams Shells Inspector Relationship Specialty Start Date End Date Salvador Mixon DO [address] [facility] [address] [place] [address] PCP - General 01/05/19 documented as of this encounter
--- OUTSIDE RECORDS SUMMARY | 2025-04-19 11:13 | XMS_ITS | Encounter Summary ---
Author Organization [facility] Address [address] [place] [address] Care Team Providers Care Manager Documentation Name Role Phone Salvador Mixon DO Primary Care Provider [phone] Encounter Details Date Type Department Care Team (Late st Contact Info) Description 02/06/2019 Scanned Document [facility] Neurosurgery [place] [address] [facility] [address] [place] [address] Edwin Mcghee MD [address] [facility] [address] [place] [address] Social History Tobacco Use Types Packs/Day Years [...] on filedocumented in this encounter Care Teams Manager Documentation Relationship Specialty Start Date End Date Salvador Mixon DO [address] [facility] [address] [place] [address] PCP - General 01/05/19 documented as of this encounter
--- OUTSIDE RECORDS SUMMARY | 2025-04-19 11:13 | XMS_ITS | Clinical Summary ---
Author Organization [facility] Address [address] [place] [address] Care Team Providers Care Roads And Parking Lots Sweeper Operator Name Role Phone Salvador Mixon DO Primary Care Provider [phone] Allergies No known active allergies Medications LORazepam (ATIVAN) 0.5 MG tablet Take 0.5 mg by mouth 3 times daily (every 8 hours) as needed. Active buPROPion (WELLBUTRIN SR) 150 MG 12 hr tablet Take 150 mg by mouth 2 (two) times a day. Active valsartan-hydro chlorothiazide (DIOVAN-HCT) 160-12.5 MG per tablet Take 1 [...] once as needed for allergic reaction. Active amoxicillin-cla vulanate (AUGMENTIN) 875-125 MG per tablet Take 1 tablet by mouth 2 (two) times a day. for 10 days 0 9 Active atorvastatin (LIPITOR) 40 MG tablet 0 9 Active QVAR REDIHALER 40 MCG/ACT inhaler 0 9 Active DILT-XR 120 MG 24 hr capsule Take 120 mg by mouth daily. 0 9 Active LORazepam (ATIVAN) 1 MG tablet 0 9 Active oxyCODONE-aceta minophen (PERCOCET) 5-325 mg per tablet 0 9 Active sertraline (ZOLOFT) 100 MG tablet 0 9 Active Social History Tobacco Use Types Packs/Day Years Used Date Smoking Tobacco: Former Smokeless Tobacco: Never Tobacco Cessation:Counseling Given: No Alcohol Use Standard Drinks/Week Comments Not Currently 0 (1 standard drink = 0.6 oz pur e alcohol) Comments Unknown Sex and Gender Information Value [...] Density (Females,Ag es 65 and older) 02/27/2020 COVID-19 Vaccine (1 - 2023-2 5 season) 2024 Influenza Vaccine 07/02/2025 RSV Vaccine 60 years and old er and Patients (1 - 1-dose 75+ series) 2030 Hepatitis B Vaccines Aged Out No long er eligible based on patient's age to complete this topic Insurance [employer] Member Subscriber Plan / Payer (Ef fective 2018-Present) Name:Marianna Bowser Kayce Relation to Subscriber:Self Name:Marianna Bowser Payer ID:[id number] Group ID:Not on file Type:Not on file Address: [facility] [address] [place] [address] Care Teams Roads And Parking Lots Sweeper Operator Relationship Specialty Start Date End Date Salvador Mixon DO [address] [place] [address] [address] [place] [address] PCP - General 01/05/19
[2025-04-19 11:35] LABS: MANUAL DIFF FLAG NO
[2025-04-19 11:37] LABS: Basophils Absolute Auto 0.1 X10*3/uL (0.0-0.2); Basophils Percent Auto 1.2 % (0-2); Eosinophils Absolute Auto 0.3 X10*3/uL (0.0-0.4); Eosinophils Percent Auto 5.3 % (0-4); Hematocrit 39.8 % (37.0-47.0); Hemoglobin 13.7 g/dl (12.0-16.0); Imm Gran Abs Auto 0.02 X10*3/uL (0.00-0.03); Imm Gran Pct Auto 0.3 % (0.0-0.4); Lymphocytes Absolute Auto 2.1 X10*3/uL (1.2-4.9); Lymphocytes Percent Auto 35.4 % (20-40); Mean Corpuscular HGB Conc 34.4 g/dl (31.0-35.0); Mean Corpuscular Hemoglobin 31.6 pg (27.0-33.0); Mean Corpuscular Volume 91.9 fL (80.0-98.0); Mean Platelet Volume 8.7 fL (9.4-12.3); Monocytes Absolute Auto 0.6 X10*3/uL (0.1-1.2); Monocytes Percent Auto 9.9 % (2-11); Neutrophils Absolute Auto 2.8 x10*3/uL (2.0-8.3); Neutrophils Percent Auto 47.9 % (45-73); Platelet Count 285 X10*3/uL (160-400); Red Blood Count 4.33 X10*6/uL (4.20-5.50); Red Cell Distribution Width 13.2 % (11.0-16.0); White Blood Count 5.8 X10*3/uL (4.8-10.8)
[2025-04-19] MEDS: Tranexamic Acid 1,000 MG in 0.9 % Sodium Chloride 50 ML 360 MG IV (11:38)
[2025-04-19 11:51] LABS: Anion Gap 11 (12-20); Blood Urea Nitrogen 22 mg/dL (9-16); Calcium 8.6 mg/dL (8.4-10.2); Carbon Dioxide 25 mmol/L (22-29); Chloride 107 mmol/L (96-108); Creatinine Clr Calc Pharmacy 82.3; Estimated Glomerular Filt Rate > 60; Glucose Random 115 mg/dL (60-115); Potassium 3.6 mmol/L (3.3-5.1); Sodium 139 mmol/L (135-145)
--- NOTE | 2025-04-19 12:44 | P.HPHOSP_ITS ---
History of Present Illness Date of Service: 04/19/25 Chief Complaint: throat swelling The patient is a 70 yo F with a PMH of prior angioedema, HTN, depression, brain aneurysm who presents with a sudden onset of throat swelling, difficulty speaking/swallowing and sensation of something in her throat. The patient reports these symptoms were present when she woke up from sleep. The patient reports 2 prior such episodes, last one about 5 years ago. She has that she has seen and audiovisual equipment operator and was diagnosed with idiopathic angioedema. She reports being on DEEPTI many years ago and has been on ARB for many years at this time. She denies any other complaints. In the ED, the patient was treated with IV solu-medrol 125, benadryl 50, Tranexamic acid 1000mg and Epi IM 0.3. With this, her symptoms have improved and she will now be admitted to the hospital for further management. Review of Systems 2 Review of Systems: Negative except HPI/interval history. [facility] Medical History Hx of spinal stenosis Back pain Depression History of cerebral aneurysm Lab test negative for COVID-19 virus Hiatal hernia GERD (gastroesophageal reflux disease) Elevated cholesterol HTN (hypertension) Surgical History History of esophagogastroduodenoscopy (EGD) H/O colonoscopy Hx of hammer toe correction Social History Are you a primary managed care analyst to a significant other at home: No Do you presently have visiting nurse or other home services: No Alcohol intake: current Alcohol intake frequency: a few times a month Patient Tobacco Use Status: Never used Tobacco Smoked in Last 30 Days: No Use of substances other than those prescribed or required for medical reasons: No Advance Directives: No Advance Directives Information Provided: Yes Nutrition Risks: No Nutritional Risk Meds Allergies Allergy/AdvReac Type Severity Reaction Status Date / Time No Known Allergies Allergy Verified 04/19/25 10:17 [No Known Allergies*] Active Medications: Current Medications Acetaminophen (Acetaminophen 325 Mg Tablet) 650 mg PO Q6H PRN PRN Reason: Pain, Mild 1-3,fever,headache Calcium Carbonate (Calcium Carbonate 750 Mg Tab.Chew) 750 mg PO Q4H PRN PRN Reason: Heartburn Enoxaparin Sodium (Enoxaparin Sodium 40 Mg/0.4 Ml Syringe) 40 mg SUBCUT Q24H [facility] Lactated Ringer's (Lr) 1,000 mls @ 100 mls/hr IVCONT .Q10H [facility] Magnesium Hydroxide (Milk Of Magnesia 30 Ml Oral.Susp) 30 ml PO DAILY PRN PRN Reason: Constipation Melatonin (Melatonin 3 Mg Tablet) 6 mg PO BEDTIME PRN PRN Reason: Insomnia Sodium Chloride (0.9 % Sodium Chloride Flush 3 Ml Syringe) 3 ml IVFLUSH QSHIFT [facility] Home Medications ?Medication ?Instructions ?Recorded ?Confirmed ?Last Taken ?Type albuterol sulfate 90 mcg/actuation 2 puff PO Q4H PRN Shortness Of 01/17/21 04/19/25 Unknown History aerosol inhaler Breath atorvastatin 40 mg tablet 1 tab PO DAILY 01/17/21 04/19/25 04/18/25 History celecoxib 200 mg capsule 1 cap PO DAILY 01/17/21 04/19/25 04/18/25 History omeprazole 20 mg capsule,delayed 1 cap PO DAILY@0630 01/17/21 04/19/25 04/18/25 History release tramadol 50 mg tablet 1 tab PO Q8H PRN moderate pain 01/17/21 04/19/25 Unknown History hgoedouwcp-kecahbmmawkjh-kzmmghyr 1 cap PO Q4H PRN Migraine Headache 03/27/24 04/19/25 Unknown History 50 mg-300 mg-40 mg capsule levocetirizine 5 mg tablet 5 mg PO DAILY 03/27/24 04/19/25 04/18/25 History valsartan 160 1 tab PO DAILY 03/27/24 04/19/25 04/18/25 History mg-hydrochlorothiazide 25 mg tablet bupropion HCl 100 mg tablet,12 hr 100 mg PO DAILY 04/19/25 04/19/25 04/18/25 History sustained-release (Wellbutrin SR) lluwwtin-xsb-gaxtf ac 400 1 tab PO DAILY 04/19/25 04/19/25 04/18/25 History mcg-calcium carb 500 mg-vit K1 20 mcg tablet (Women's 50 Plus Multivitamin) Physical Exam 2 Vital Signs and Narrative: Vital Signs: Last Vital Signs Temp 98.1 F 04/19/25 10:17 Pulse 79 04/19/25 11:53 Resp 16 04/19/25 11:53 BP 151/82 H 04/19/25 11:53 Pulse Ox 93 04/19/25 11:53 O2 Del Method Room Air 04/19/25 11:53 BMI result Body Mass Index 34.0 Const: Other: Constitutional - Awake and Alert, No apparent distress HEENT - uvula swollen, but able to visualize posterior pharynx; voice appears normal (per daughter who is bedside); no other edema noted Cardiovascular - S1S2, RRR, No edema Respiratory - Normal lung expansion, Normal respiratory effort, No respiratory distress, CTA bilaterally Gastrointestinal - NT / ND; +BS; No rebound or guarding - No CVA tenderness Extremities - no calf tenderness bilaterally, no swelling Musculoskeletal - Normal inspection, normal ROM Skin - Warm/Dry Neurological - Alert & oriented x3, No focal deficit Psychological - Appropriate affect Results Labs 04/19/25 11:32 04/19/25 11:32 Labs: Laboratory Results - last 24 hr 04/19/25 04/19/25 11:32 11:43 MCV 91.9 MCH 31.6 MCHC 34.4 RDW 13.2 Plt Count 285 MPV 8.7 L Immature Gran % (Auto) 0.3 Neut % (Auto) 47.9 Lymph % (Auto) 35.4 Vance % (Auto) 9.9 Eos % (Auto) 5.3 H Baso % (Auto) 1.2 Lymph # (Auto) 2.1 Vance # (Auto) 0.6 Eos # (Auto) 0.3 Baso # (Auto) 0.1 Abs Immat Gran (auto) 0.02 Absolute Neuts (auto) 2.8 Absolute Nucleated RBC 0.000 Nucleated RBC % (auto) 0.0 Anion Gap 11 L Estim Creat Clear Calc 82.3 Estimated GFR > 60 Random Glucose 115 Calcium 8.6 Blood Type B Negative Antibody Screen NEGATIVE Assessment and Plan (1) Angioedema: Status: Acute Plan 70 yo F with a history of ? idiopathic angioedema, presenting for her 3rd episode (previous one about 5 years ago). She has responded to medical therapy in the ED and now will be observed. 1. Suspected idiopathic angioedema pt not on DEEPTI, but on ARB -- will plan to d/c this for now given solu-medrol in the ED IV H2 ginette, prednisone keep NPO for now IVF 2. HTN on losartan/hctz combo at home currently normotensive plan to d/c losartan upon d/c and use hctz alone (add second agent if bp remains high) 3. HLD statin Full Code DVT pptx, Lovenox Quality Stroke Does the patient have a stroke diagnosis?: No VTE Prior VTE?: No VTE Risk Level:: Medical - moderate - high VTE Device Contraindication: N/A - Device Ordered VTE Drug Contraindication: N/A - Med Ordered
--- NOTE | 2025-04-19 13:24 | PHA.MEDREC ---
Addendum entered by Ulises Foley 04/19/25 13:47: reviewed Original Note: Pharmacy Consult ? Medication Reconciliation Pharmacy has completed the medication reconciliation. Spoke with patient and she was able to confirm her medications.
[2025-04-19] MEDS: Lactated Ringers 1,000 ML 100 ML IVCONT ×2 (13:54→23:51)
[2025-04-19] MEDS: Enoxaparin Sodium 40 MG/0.4 ML SYRINGE SUBCUT (14:33)
[2025-04-19] MEDS: Acetaminophen 325 MG TABLET 650 MG PO ×2 (17:12→23:41)
[2025-04-19] MEDS: LORazepam 1 MG TABLET PO (17:12)
[2025-04-19] MEDS: Famotidine/PF 20 MG/2 ML VIAL IVPUSH (20:20)
[2025-04-19] MEDS: Butalb/Acetamin/Caff 50/325/40 TABLET 1 TAB PO (20:20)
[2025-04-20] VITALS: BP 165/82; PULSE 96; RESP 16; TEMP 36.7; O2SAT 94
[2025-04-20 00:41] VITALS: RESP 20
[2025-04-20 03:47] VITALS: BP 133/70; PULSE 89; RESP 16; TEMP 36.8; O2SAT 94
[2025-04-20] MEDS: Butalb/Acetamin/Caff 50/325/40 TABLET 1 TAB PO (06:10)
[2025-04-20] MEDS: Omeprazole 20 MG CAPSULE.DR PO (06:10)
[2025-04-20 07:34] VITALS: BP 138/73; PULSE 87; RESP 20; TEMP 36.2; O2SAT 97
[2025-04-20] MEDS: hydroCHLOROthiazide 25 MG TABLET PO (08:34)
[2025-04-20] MEDS: amLODIPine Besylate 5 MG TABLET PO (08:34)
[2025-04-20] MEDS: Famotidine/PF 20 MG/2 ML VIAL IVPUSH (08:34)
[2025-04-20] MEDS: Atorvastatin Calcium 40 MG TABLET PO (08:34)
[2025-04-20] MEDS: Sertraline HCL 100 MG TABLET PO (08:34)
[2025-04-20] MEDS: 0.9 % Sodium Chloride Flush 3 ML SYRINGE IVFLUSH (08:35)
[2025-04-20] MEDS: methylPREDNISolone Sod Succ 40 MG/ML VIAL IVPUSH (08:35)
--- NOTE | 2025-04-20 08:41 | MHC.CM.PN ---
CM met with Patient at bedside and addressed CAMACHO with her, providing Patient with the original and a copy has been placed on the chart. 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 Home/self care is Patient's goal and CM has initiated and will follow for dc planning. PCP is Dr. Luisa Dawkins and Son/HCP/Eddie will transport to home at time of dc.
--- NOTE | 2025-04-20 12:55 | P.DS_ITS ---
DS: Providers Provider Date of Service: 04/20/25 Date of admission: 04/19/25 12:35 Date of discharge: 04/20/25 Primary care physician: Luisa Dawkins MD DS: Diagnosis Discharge Diagnosis (1) Angioedema: Status: Acute DS: Summary Hospital Course Hospital Course: Admission note HPI The patient is a 70 yo F with a PMH of prior angioedema, HTN, depression, brain aneurysm who presents with a sudden onset of throat swelling, difficulty speaki ng/swallowing and sensation of something in her throat. The patient reports these symptoms were present when she woke up from sleep. The patient reports 2 prior such episodes, last one about 5 years ago. She has that she has seen and tack driller and was diagnosed with idiopathic angioedema. She reports being on DEEPTI many years ago and has been on ARB for many years at this time. She denies any other complaints.In the ED, the patient was treated with IV solu- medrol 125, benadryl 50, Tranexamic acid 1000mg and Epi IM 0.3. With this, her symptoms have improved and she will now be admitted to the [facility] for further management. Hospital course The patient was admitted for reported sudden onset throat swelling with hx of idiopathic angioedema. Has been on her medications for long time with no new pills. received IV solu-medrol along with IV H2 ginette and had 2 units FFP transfusion with good response as the swelling and feeling of itchiness in throat resolved. she was able to tolerate diet and was able to ambulate on room air with no reported dyspnea. To be discharged on Prednisone tapering dose, Famotidine daily along her home medications and to follow with allergy clinic as outpatient. Discharge plan PRednisone tapering dose Take Famotidine 20 mg daily EpiPen if needed Follow with Allergy clinic as outpatient for further work up and management Time Attestation Discharge Coordination Time (in mins): 28 Quality: Safe Use of Opioids Does Pt have an Active Cancer Diagnosis on the Problem List?: No Quality: Stroke Does the patient have a stroke diagnosis?: No Physical Exam Vital Signs: Vital Signs: Last Vital Signs Temp 97.2 F 04/20/25 07:34 Pulse 87 04/20/25 07:34 Resp 20 04/20/25 07:34 BP 138/73 04/20/25 07:34 Pulse Ox 97 04/20/25 07:34 O2 Del Method Room Air 04/20/25 07:34 BMI result Body Mass Index 34.0 Const: Other: Constitutional : Awake, interactive, not in distress Neck : Normal inspection, Supple, clear throat Cardiovascular : RRR, no JVP, no lower extremity edema Respiratory : good bilateral air entry, no crackles, wheezes or rhonchi Gastrointestinal: soft, lax, Normal bowel sounds, Non tender Skin : Warm, Dry Neurological : Alert & oriented x3, No focal deficit DS: Data Data Completed and Pending Labs on day of discharge: Laboratory Results - last 24 hr 04/19/25 11:43 Blood Type B Negative Antibody Screen NEGATIVE Discharge Plan Discharge Anticipated Discharge Date/Time: 04/20/25 12:50 Patient Disposition: Home, Self-Care Discharge Diagnosis: Allergic reaction Referrals: Luisa Dawkins MD [Primary Care Provider] - 1 Week Discharge Medications: New famotidine 20 mg tablet 20 mg PO DAILY Qty: 90 0RF prednisone 10 mg tablet See Taper PO DIRECTED Qty: 30 0RF Taper: Prednisone 40 mg daily for 3 Days and 0 Hour 30 mg daily for 3 Days and 0 Hour 20 mg daily for 3 Days and 0 Hour 10 mg daily for 3 Days and 0 Hour Rx Instructions: see taper instructions epinephrine 0.3 mg/0.3 mL auto-injector 0.3 mg IM Q10M PRN (Reason: angioedema) Qty: 2 0RF Rx Instructions: for 2 doses Continued celecoxib 200 mg capsule 1 cap PO DAILY atorvastatin 40 mg tablet 1 tab PO DAILY tramadol 50 mg tablet 1 tab PO Q8H PRN (Reason: moderate pain) omeprazole 20 mg capsule,delayed release(DR/EC) 1 cap PO DAILY@0630 albuterol sulfate 90 mcg/actuation HFA aerosol inhaler 2 puff PO Q4H PRN (Reason: Shortness Of Breath) Women's 50 Plus Multivitamin 400 mcg-500 mg calcium-20 mcg Tablet 1 tab PO DAILY bupropion HCl [Wellbutrin SR] 100 mg tablet sustained-release 12 hr 100 mg PO DAILY sertraline [Zoloft] 100 mg tablet 100 mg PO DAILY Qty: 90 1RF lorazepam 1 mg tablet 1 mg PO BID PRN (Reason: anxiety) 90 Days Qty: 180 1RF valsartan-hydrochlorothiazide 160-25 mg tablet 1 tab PO DAILY levocetirizine 5 mg tablet 5 mg PO DAILY usdladhonw-pcesoqhpxyhnz-fsqy 50-300-40 mg capsule 1 cap PO Q4H PRN (Reason: Migraine Headache) Discharge Orders: Discharge Order (Routine); Ordered 04/20/25 Ordered By: Taj Bradley Diet: Advance to usual diet Activity on Discharge: As tolerated Stand Alone Forms: Patient Portal Discharge page Print Language: Macedonian Care Plan Goals: PRednisone tapering dose Take Famotidine 20 mg daily EpiPen if needed Follow with Allergy clinic as outpatient for further work up and management Health Concerns: Angioedema Plan of Treatment: Prednisone, Famotidine Allergy clinic follow up Assessment: as above
--- NOTE | 2025-04-20 12:55 | MHC.CM.PN ---
Patient has been medically cleared for dc to home today, self care.
== END 2025-04-20 13:00 | disposition home or self-care (01) ==
LOC: HO.ED 12:12 → HO.EDOVER 12:40 → HO.IMC 15:33
PROVIDERS: Admitting Provider Family Medicine; Emergency Provider Emergency Medicine; PCP Internal Medicine; Visit Provider Student in an Organized Health Care Education/Training Program
DX: T78.40XA Allergy, unspecified, initial encounter (principal); X58.XXXA Exposure to other specified factors, initial encounter; Y93.9 Activity, unspecified; Y92.9 Unspecified place or not applicable; Y99.9 Unspecified external cause status; R09.A2 Foreign body sensation, throat; J02.9 Acute pharyngitis, unspecified; R60.9 Edema, unspecified; I10 Essential (primary) hypertension; E78.5 Hyperlipidemia, unspecified; G47.00 Insomnia, unspecified; K21.9 Gastro-esophageal reflux disease without esophagitis; Z79.899 Other long term (current) drug therapy
CPT/HCPCS: 36415; 80048; 85025; 86850; 86900; 86901; 96361; 96372; 96374; 96375; 96376; 99222; 99285; J0171; J1200; J1308; J1650; J2919; J7120; P9017

== ENCOUNTER → 2025-04-19 12:35 | Outpatient (BNV) | payer MEDICARE, SELFPAY | PROVIDERS: Admitting Provider Family Medicine; Emergency Provider Emergency Medicine; PCP Internal Medicine; Visit Provider Family Medicine | DX: T78.3XXA Angioneurotic edema, initial encounter (principal) | CPT/HCPCS: 99222; 99238 ==

== ENCOUNTER 2025-06-23 12:58 | Outpatient (REF) | payer MEDICARE, SELFPAY ==
--- NOTE | ~2025-06-23 | MM_ITS ---
EXAMINATION: DXA BONE DENSITY AXIAL HISTORY: Z13.820 TECHNIQUE: Invup Dual energy absorptiometry (DEXA) of the lumbar spine, total left hip, and femoral neck was performed. COMPARISON: Comparison is made with the prior examination dated 10/18/2017. FINDINGS: The bone mineral density of the lumbar spine is 0.985 g/cm2, corresponding to a T-score of -1.6, and a Z-score of -0.8. This is indicative of osteopenia. This represents a BMD change of -0.7% compared to the prior exam. This is not statistically significant. The bone mineral density of the left total hip is 0.858 g/cm2, corresponding to a T-score of -1.2, and a Z-score of -0.3. This is indicative of osteopenia. This represents a BMD change of -1.8% compared to the prior exam. This is not statistically significant. The bone mineral density of the left femoral neck is 0.846 g/cm2, corresponding to a T-score of -1.4, and a Z-score of -0.2. This is indicative of osteopenia. This represents a BMD change of -0.8% compared to the prior exam. FRACTURE RISK: The FRAX index suggests a ten year probability of major osteoporotic fracture of 9.2%, and of hip fracture 2.0%. MM/XR DEXA axial skeleton IMPRESSION: Based on bone mineral density, and according to World Health Organization (WHO) criteria, the diagnosis is consistent with osteopenia. Statistically, 68% of repeat scans fall within 1 SD (+/- 0.010 g/cm2 for AP spine L1-L4) and 1 SD (+/- 0.012 g/cm2 for femur total) FRAX is a trademark of the [employer] Metabolic Bone Disease, a World Health Organization (WHO) Collaborating Center. Electronically signed by: Kofi Darby MD 06/23/2025 01:35 PM EDT
--- NOTE | ~2025-06-23 | MM_ITS ---
EXAMINATION: MM SCREENING DIGITAL BREAST TOMOSYNTHESIS, BILATERAL CLINICAL INFORMATION: Screening. Asymptomatic. COMPARISON: Comparison made to multiple prior, most recent June 18, 2024, and most remote October 26, 2019. TECHNIQUE: Digital breast tomosynthesis is performed in both the craniocaudal and mediolateral oblique views along with computer-aided detection (CAD). Synthesized 2D images are generated from the tomosynthesis. FINDINGS: BREAST COMPOSITION: There are scattered areas of fibroglandular density (ACR BI-RADS breast composition Category b). BILATERAL BREASTS: No significant masses, suspicious calcifications or other abnormalities are seen in either breast. MM/MM tomosynthesis screening BI IMPRESSION: BILATERAL BREASTS: Negative, no mammographic evidence of malignancy. Normal interval follow-up is recommended in 12 months. ASSESSMENT: BI-RADS 1 - Negative RECOMMENDATION: Routine annual mammography screening. FOLLOW-UP: 1 year F/U This examination should not preclude the clinical evaluation of a suspicious palpable abnormality. This patient's information was entered into a reminder system with a target due date for their next mammogram. Electronically signed by: Viktor Price MD 06/29/2025 07:03 PM EDT
--- OUTSIDE RECORDS SUMMARY | 2025-06-23 13:24 | XMS_ITS | Patient Health Record ---
Author Organization [facility] Address [address] [place] [address] Care Team Providers Care [place] Name Role Phone Oral (RETIRED) Salvdaor GAY Primary Care Provide r Unavailable Kofi Gonzalez Unavailable [phone] Reason For Referral No Information Medications Medication SIG (Take, Route, Frequency, Duration) Notes Start Date End Date Status EpiPen Active Atorvastatin Calcium 40 MG TAKE 1 TABLET BY MOUTH ONCE DAILY Oral for 90 Active LORazepam 0.5 MG 1 tablet as needed Orally QD or BID prn anxiety Active buPROPion HCl ER (XL) 150 MG TAKE 1 TABLET BY MOUTH EVERY MORNING Oral for 90 Active Sertraline HCl 100 MG TAKE 2 TABLETS BY MOUTH ONCE DAILY Oral for 90 Active Omeprazole 20 MG Oral for 90 A ctive Valsartan-hydroCHLOROthia zide 80-12.5 MG Oral for 84 Active ProAir HFA 108 (90 Base) MCG/ACT 2 puffs as needed Inhalation every 6 hrs Active Qvar 40 MCG/ACT 1 puff Inhalation Tw ice a day Active clonazePAM 1 MG (Schedule IV Drug) T ANTELMO 1 TABLET BY MOUTH ONCE DAILY AT BEDTIME Oral for 30 Not-Taking Co Q-10 100 MG 1 capsule with a nilson l Orally Once a day Active Fluticasone Propionate 50 MCG/ACT Nasal for 30 Active Social History Tobacco Use: Social History Observation Description Date Details (start date - stop date) Former Smoker NA - NA Tobacco Use/Smoking Question Answer Notes Patient is a former smoker How long has it been since you last smoked? 6-12 months Alcohol Screen Question Answer Notes Did you have a drink contain ing alcohol in the past year? Yes How often did you have a dri nk containing alcohol in the past year? 2 to 4 times a month (2 points) How many drinks did you have on a typical day when you were drinking in the past year? 3 or 4 drinks (1 point) Points 3 Interpretation Positive Section Notes: Nonsmoker 10/2017; no sig al cohol Problems Problem Type SNOMED Code ICD Code Onset Dates Problem Status W/U Status Risk Notes Problem [id number] Encounter for screening for malignant neoplasm of colon (Z12.11) Active confirmed Problem [id number] Gastroesophageal reflux disease, esophagitis presence not specified (K21.9) Active confirmed Plan Of Treatment Future Test Test Name Order Date UPPER GI ENDOSCOPY 06/25/2018 COLONOSCOPY 06/25/2018 Insurance Providers Payer Name Payer Address Payer Phone Subscriber Number Group Number Insured Name Patient Relationship to Insured Coverage Start Date Coverage End Date [facility] [address] [place] [phone] [id number] YANDY COBIAN Self - patient is the insured Medical (General) History Medical History History ICD Code GERD Hypertension Hyperlipidemia Anxiety/depression/PTSD Asthma Seasonal allergies Osteoarthritis Denies OR,DM,CVA,renal disease Negative screening colonoscopy in 08/2007 Surgical History Surgery Date(Month/Year) Bunionectomy Hammertoe Right middle finger tendon
--- OUTSIDE RECORDS SUMMARY | 2025-06-23 13:24 | XMS_ITS | Encounter Summary ---
Author Organization [facility] Address [address] [place] [address] Care Team Providers Care Commodity Specialist Name Role Phone Salvador Mixon DO Primary Care Provider [phone] Encounter Details Date Type Department Care Team (Late st Contact Info) Description 02/04/2019 Scanned Document [facility] [address] [facility] [address] [place] [id number] Provider, Nati, [address] [place] [address] Social History Tobacco Use Types Packs/Day Years [...] on filedocumented in this encounter Care Teams Commodity Specialist Relationship Specialty Start Date End Date Salvador Mixon DO [address] [facility] [address] [place] [address] PCP - General 01/05/19 documented as of this encounter
== END 2025-06-23 12:59 | disposition home or self-care (01) ==
LOC: HO.MAMMO 12:58
PROVIDERS: PCP Internal Medicine; Visit Provider Internal Medicine
DX: Z12.31 Encounter for screening mammogram for malignant neoplasm of breast (principal); Z13.820 Encounter for screening for osteoporosis; M85.89 Other specified disorders of bone density and structure, multiple sites
CPT/HCPCS: 77063; 77067; 77080

== ENCOUNTER → 2025-06-23 13:30 | Outpatient (BNV) | payer MEDICARE, SELFPAY | PROVIDERS: PCP Internal Medicine; Visit Provider Radiology Diagnostic Radiology | DX: E28.39 Other primary ovarian failure (principal) | CPT/HCPCS: 77080 ==

== ENCOUNTER 2025-07-08 11:27 | Outpatient (AMB) | payer MEDICARE, SELFPAY ==
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
--- OUTSIDE RECORDS SUMMARY | 2025-07-08 12:08 | XMS_ITS | Patient Health Record ---
Author Organization [facility] Address [address] [place] [address] Care Team Providers Care Program Engagement Director Name Role Phone Oral (RETIRED) Salvador GAY Primary Care Provide r Unavailable Kofi Gonzalez Unavailable [phone] Reason For Referral No Information Medications Medication [...] Problem Status W/U Status Risk Notes Problem [id number] Encounter for screening for malignant neoplasm of colon (Z12.11) Active confirmed Problem [id number] Gastroesophageal reflux disease, esophagitis presence not specified (K21.9) Active confirmed Plan Of Treatment Future Test Test Name Order Date UPPER GI ENDOSCOPY 06/25/2018 COLONOSCOPY 06/25/2018 Insurance Providers Payer Name Payer Address Payer Phone Subscriber Number Group Number Insured Name Patient Relationship to Insured Coverage Start Date Coverage End Date [facility] [address] [place] [phone] [id number] YANDY COBIAN Self - patient is the insured Medical (General) History Medical History History ICD Code GERD Hypertension Hyperlipidemia Anxiety/depression/PTSD Asthma Seasonal allergies Osteoarthritis Denies SC,DM,CVA,renal disease Negative screening colonoscopy in 08/2007 Surgical History Surgery Date(Month/Year) Bunionectomy Hammertoe Right middle finger tendon
--- OUTSIDE RECORDS SUMMARY | 2025-07-08 12:08 | XMS_ITS | Encounter Summary ---
Author Organization [facility] Address [address] [place] [address] Care Team Providers Care Pro Shop Attendant Name Role Phone Salvador Mixon DO Primary Care Provider [phone] Encounter Details Date Type Department Care Team (Late st Contact Info) Description 02/04/2019 Scanned Document [facility] [address] [facility] [address] [place] [phone] Provider, Nati, [address] [place] [address] Social History Tobacco Use Types Packs/Day Years [...] on filedocumented in this encounter Care Teams Pro Shop Attendant Relationship Specialty Start Date End Date Salvador Mixon DO [address] [facility] [address] [place] [address] PCP - General 01/05/19 documented as of this encounter
== END 2025-07-08 12:06 | disposition home or self-care (01) ==
LOC: HO.HOP 11:27
PROVIDERS: PCP Internal Medicine; Visit Provider Clinical Nurse Specialist Psychiatric/Mental Health
DX: F33.9 Major depressive disorder, recurrent, unspecified (principal); F43.10 Post-traumatic stress disorder, unspecified
CPT/HCPCS: 99214

== ENCOUNTER → 2025-07-08 11:27 | Outpatient (BNVA) | payer MEDICARE, SELFPAY | PROVIDERS: PCP Internal Medicine; Visit Provider Clinical Nurse Specialist Psychiatric/Mental Health | DX: F43.10 Post-traumatic stress disorder, unspecified (principal); F33.9 Major depressive disorder, recurrent, unspecified | CPT/HCPCS: 99212 ==

== ENCOUNTER 2025-10-26 16:29 | Outpatient (AMB) | payer MEDICARE, SELFPAY ==
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
--- OUTSIDE RECORDS SUMMARY | 2025-10-26 19:34 | XMS_ITS | Encounter Summary ---
Author Organization [facility] Address [address] [place] [address] Care Team Providers Care Insurance Application Investigator Name Role Phone Salvador Mixon DO Primary Care Provider [phone] Encounter Details Date Type Department Care Team (Late st Contact Info) Description 02/04/2019 Scanned Document [facility] [address] [facility] [address] [place] [phone] Provider, Nati, [address] [place] [address] Social History Tobacco Use Types Packs/Day Years [...] on filedocumented in this encounter Care Teams Insurance Application Investigator Relationship Specialty Start Date End Date Salvador Mixon DO [address] [facility] [address] [place] [address] PCP - General 01/05/19 documented as of this encounter
--- OUTSIDE RECORDS SUMMARY | 2025-10-26 19:34 | XMS_ITS | Encounter Summary ---
Author Organization [facility] Address [address] [place] [address] Care Team Providers Care Geological Sample Tester Name Role Phone Salvador Mixon DO Primary Care Provider [phone] Encounter Details Date Type Department Care Team (Late st Contact Info) Description 01/12/2019 Scanned Document [facility] [address] [facility] [address] [place] [phone] Edwin Mcghee MD [address] [place] [address] Social History Tobacco Use Types Packs/Day Years [...] on filedocumented in this encounter Care Teams Geological Sample Tester Relationship Specialty Start Date End Date Salvador Mixon DO 36 [facility] [address] [place] [address] PCP - General 01/05/19 documented as of this encounter
--- OUTSIDE RECORDS SUMMARY | 2025-10-26 19:34 | XMS_ITS | Patient Health Record ---
Author Organization [facility] Address [address] [place] [address] Care Team Providers Care Dental Detail Representative Name Role Phone Oral (RETIRED) Salvador GAY Primary Care Provide r Unavailable Kofi Gonzalez Unavailable [phone] Reason For Referral No Information Medications Medication SIG (Take, Route, Frequency, Duration) Notes Start Date End Date Status EpiPen Active Atorvastatin Calcium 40 MG Tablet TAKE 1 TABLET BY MOUTH ONCE DAILY Oral; Duration: 90 Active LORazepam 0.5 MG Tablet 1 tablet as need ed Orally QD or BID prn anxiety Active buPROPion HCl ER (XL) 150 MG Tablet Extended Release 24 Hour TAKE 1 TABLET BY MOUTH EVERY MORNING Oral; Duration: 90 Active Sertraline HCl 100 MG Tablet TAKE 2 TABLETS BY MOUTH ONCE DAILY Oral; Duration: 90 Active Omeprazole 20 MG Capsule Delayed Release Oral; Duration: 90 Active Valsartan-hydroCHLOROth iazide 80-12.5 MG Tablet Oral; Duration: 84 Active ProAir HFA 108 (90 Base) MCG/ACT Aerosol Solution 2 puffs as needed Inhalation every 6 hrs Active Qvar 40 MCG/ACT Aerosol Solution 1 puff Inhalation Twice a day Active clonazePAM 1 MG Tablet (Schedule IV Drug ) TAKE 1 TABLET BY MOUTH ONCE DAILY AT BEDTIME Oral; Duration: 30 Not-Taking/PRN Co Q-10 100 MG Capsule 1 capsule with a meal Orally Once a day Active Fluticasone Propionate 50 MCG/ACT Suspension Nasal; Duration: 30 Active Social History Tobacco Use: Social History Observation Description Date Details (start date - stop date) Former Smoker NA - NA Social History Drugs/Alcohol: Social Info Question Answer Notes Alcohol Screen Did you have a drink containing alcohol in the past year? Yes How often did you have a drink containing alcohol in the past year? 2 to 4 times a month (2 points) How many drinks did you have on a typical day when you were drinking in the past year? 3 or 4 drinks (1 point) Points 3 Interpretation Positive Tobacco Use: Social Info Question Answer Notes Tobacco Use/Smoking Patient is a former smoker How long has it been since you last smoked? 6-12 months Additional Details Category Social Info Options Details Miscellaneous: Marital status: Occupation: Disabled Section Notes: Nonsmoker 10/2017; no sig al cohol Problems Problem Type SNOMED Code ICD Code Onset Dates Problem Status W/U Status Risk Notes Problem Screening for malignant neoplasm of colon ([id number]) Encounter for screening for malignant neoplasm of colon (Z12.11) Active confirmed Problem Gastroesophageal reflux disease (314732305) Gastroesophageal reflux disease, esophagitis presence not specified (K21.9) Active confirmed Plan Of Treatment Future Test Test Name Order Date UPPER GI ENDOSCOPY 06/25/2018 COLONOSCOPY 06/25/2018 Insurance Providers Payer Name Payer Address Payer Phone Subscriber Number Group Number Insured Name Patient Relationship to Insured Coverage Start Date Coverage End Date [facility] [address] [place] [phone] [id number] YANDY COBIAN Self - patient is the insured Medical (General) History Medical History History ICD Code GERD Hypertension Hyperlipidemia Anxiety/depression/PTSD Asthma Seasonal allergies Osteoarthritis Denies CA,DM,CVA,renal disease Negative screening colonoscopy in 08/2007 Surgical History Surgery Date(Month/Year) Bunionectomy Hammertoe Right middle finger tendon
--- OUTSIDE RECORDS SUMMARY | 2025-10-26 19:34 | XMS_ITS | Encounter Summary ---
Author Organization [facility] Address [address] [place] [address] Care Team Providers Care Ledger Poster Name Role Phone Salvador Mixon DO Primary Care Provider [phone] Encounter Details Date Type Department Care Team (Late st Contact Info) Description 02/06/2019 Scanned Document [facility] [place] [address] [facility] [address] [place] [address] Edwin Mcghee MD [address] [facility] [address] [place] [address] Social History Tobacco Use Types Packs/Day Years [...] on filedocumented in this encounter Care Teams Ledger Poster Relationship Specialty Start Date End Date Salvador Mixon DO 36 [facility] [address] [place] [address] PCP - General 01/05/19 documented as of this encounter
--- OUTSIDE RECORDS SUMMARY | 2025-10-26 19:35 | XMS_ITS | Clinical Summary ---
Author Organization [facility] Address [address] [place] [address] Care Team Providers Care Photo Optics Technician Name Role Phone Salvador Mixon DO Primary Care Provider [phone] Allergies No known active allergies Medications LORazepam [...] Health Maintenance Due Date Last Done Comments Advance Care Planning 1955 Hepatitis C Virus Screening 1955 DTaP/Tdap/Td Vaccines (1 - Tdap) 1974 Mammogram 1995 Colonoscopy 02/27/2000 Pneumococcal Vaccines 50+ (1 of 1 - PCV) 2005 Zoster (Shingles) Vaccine (1 of 2) 2005 DXA Bone Density (Females,Ag es 65 and older) 02/27/2020 Influenza Vaccine 07/02/2025 COVID-19 Vaccine (1 - 2023-2 5 season) 2025 RSV Vaccine 50 years and old er and Patients (1 - 1-dose 75+ series) 2030 Hepatitis B Vaccines Aged Out No long er eligible based on patient's age to complete this topic Insurance [employer] Care Teams Photo Optics Technician Relationship Specialty Start Date End Date Salvador Mixon DO [address] [facility] [address] [place] [address] PCP - General 01/05/19
== END 2025-10-26 16:34 | disposition home or self-care (01) ==
LOC: HO.HOP 16:29
PROVIDERS: PCP Internal Medicine; Visit Provider Clinical Nurse Specialist Psychiatric/Mental Health
DX: F33.9 Major depressive disorder, recurrent, unspecified (principal); F43.10 Post-traumatic stress disorder, unspecified
CPT/HCPCS: 99214

== ENCOUNTER → 2025-10-26 16:29 | Outpatient (BNVA) | payer MEDICARE, SELFPAY | PROVIDERS: PCP Internal Medicine; Visit Provider Clinical Nurse Specialist Psychiatric/Mental Health | DX: F43.10 Post-traumatic stress disorder, unspecified (principal); F33.9 Major depressive disorder, recurrent, unspecified | CPT/HCPCS: 99212 ==